=== PATIENT | female | born 2000 | race Caucasian/White ===

== ENCOUNTER 2025-02-16 09:27 | Emergency (ER) | payer MEDICAID ==
[~2025-02-16] VITALS: Ht 170.2 cm; Wt 83.0 kg
[2025-02-16 09:45] VITALS: O2SAT 99
[2025-02-16 10:13] LABS: BASOPHILS % 0.4 % (0.0-2.0); EOSINOPHILS % 0.4 % (0.0-5.0); HEMATOCRIT. 42.9 % (36.0-48.0); HEMOGLOBIN. 14.3 g/dL (12.0-16.0); LYMPHOCYTES % 33.5 % (20.0-50.0); MEAN PLATELET VOLUME 8.7 fl (7.4-10.4); MONOCYTES % 6.1 % (2.0-8.0); NEUTROPHILS % 59.6 % (40.0-76.0); PLATELET 209 x1000/uL (130-400); RED BLOOD CELL COUNT 4.85 mill/uL (4.2-5.4); RED CELL DISTRIBUTION WIDTH 13.2 % (11.6-14.6)
[2025-02-16 10:33] LABS: HCG SCREEN NEGATIVE
[2025-02-16 11:49] LABS: CLARITY URINE TURBID (CLEAR); COLOR URINE YELLOW (YELLOW); GLUCOSE URINE NEGATIVE (NEGATIVE); KETONES URINE NEGATIVE (NEGATIVE); LEUKOCYTE ESTERASE URINE NEGATIVE (NEGATIVE); NITRITE URINE NEGATIVE (NEGATIVE); OCCULT BLOOD URINE NEGATIVE (NEGATIVE); PH URINE 7.5 (4.5-8.0); PROTEIN URINE NEGATIVE (NEGATIVE); SPECIFIC GRAVITY URINE 1.019 (1.005-1.030); UROBILINOGEN URINE 0.2 E.U./dL (0.2-1.0)
[2025-02-16 12:29] LABS: AMORPHOUS SEDIMENT URINE 3+ /lpf; SQUAMOUS EPITHELIAL CELL URINE RARE /lpf (RARE/1+)
[2025-02-16 12:30] LABS: BACTERIA URINE 1+
[2025-02-16 12:32] LABS: RBC URINE NONE SEEN /hpf (0-2); WBC URINE 0-2 /hpf (0-2)
[2025-02-16 13:35] VITALS: BP 154/95; PULSE 82; RESP 16; TEMP 36.6; O2SAT 99
== END 2025-02-16 13:39 | disposition home or self-care (01) ==
LOC: ER 09:27
DX: N93.8 Other specified abnormal uterine and vaginal bleeding (principal); Z88.5 Allergy status to narcotic agent; Z90.89 Acquired absence of other organs
CPT/HCPCS: 36415; 76830; 76856; 81003; 84703; 85025; 86850; 86900; 99284